=== PATIENT | female | born 1940 | race Caucasian/White ===

== ENCOUNTER 2020-03-23 08:39 | Outpatient (CLI) | payer MEDICARE, SELFPAY ==
--- NOTE | ~2020-03-23 | DEXA_ITS ---
Bone Density Report Name: Nneka Petty Age: 79 Sex: Female Ethnicity: White Date of : 1940 Indication: postmenopausal; height loss; Referring Provider: Corinne Greer Study: Bone densitometry was performed. Exam Date: March 23, 2020 Accession number: [id number] Bone Density: Region BMD T-score Z-score Classification AP Spine (L1-L4) 1.040 -0.1 2.5 Normal Femoral Neck (Left) 0.841 -0.1 2.1 Normal Total Hip (Left) 0.936 0.0 1.9 Normal Total Hip Bilateral Avg 0.925 -0.1 1.8 Normal Femoral Neck (Right) 0.794 -0.5 1.7 Normal Total Hip (Right) 0.913 -0.2 1.7 Normal World Health Organization criteria for BMD impression classify patients as: Normal (T-score at or above -1.0), Osteopenia (T-score between -1.0 and -2.5), or Osteoporosis (T-score at or below -2.5). 10-year Fracture Risk: FRAX not reported because: All T-scores for Spine Total, Hip Total, Femoral Neck at or above -1.0 Previous Exams: Region Exam Age BMD T-score BMD Change BMD Change Date g/cm2 vs Baseline vs Previous AP Spine(L1-L4) 03/23/2020 79 1.040 -0.1 -0.005(-0.5%)# 0.030(3.0%)* 03/16/2017 76 1.010 -0.3 -0.035(-3.4%)# -0.038(-3.6%)* 03/12/2015 74 1.047 0.0 0.003(0.3%)# 0.019(1.8%)# 03/06/2013 72 1.029 -0.2 -0.016(-1.5%)# -0.013(-1.2%)# 03/01/2011 70 1.042 0.0 -0.003(-0.3%) -0.001(-0.1%) 02/19/2009 68 1.043 0.0 -0.002(-0.2%) -0.002(-0.2%) 02/07/2006 65 1.045 0.0 Total Hip(Left) 03/23/2020 79 0.936 0.0 -0.027(-2.8%)# -0.029(-3.0%)* 03/16/2017 76 0.965 0.2 0.003(0.3%)# 0.016(1.7%) 03/12/2015 74 0.950 0.1 -0.013(-1.3%)# -0.047(-4.7%)# 03/06/2013 72 0.997 0.4 0.034(3.6%)# 0.022(2.3%)# 03/01/2011 70 0.975 0.3 0.012(1.3%) -0.001(-0.1%) 02/19/2009 68 0.976 0.3 0.013(1.4%) 0.013(1.4%) 02/07/2006 65 0.963 0.2 Total Hip(Right) 03/23/2020 79 0.913 -0.2 0.049(5.7%)# -0.029(-3.1%)* 03/16/2017 76 0.942 0.0 0.078(9.0%)# 0.061(7.0%)* 03/12/2015 74 0.880 -0.5 0.017(1.9%)# -0.013(-1.5%)# 03/06/2013 72 0.894 -0.4 0.030(3.5%)# 0.020(2.2%)# 03/01/2011 70 0.874 -0.6 0.010(1.2%) -0.004(-0.4%) 02/19/2009 68 0.878 -0.5 0.014(1.6%) 0.014(1.6%) 02/07/2006 65 0.864 -0.6 *Denotes significance at 95% confidence level, LSC for AP Spine = 0.022 g/cm2, LSC for Total Hip = 0.027 g/cm2 Clinical Information Provided by Patient: Has used the following medications: Vi
--- NOTE | ~2020-03-23 | MM_ITS ---
EXAMINATION: MM screening konrad BI w zonia HISTORY: Screening mammogram, family history of breast cancer in her mother. TECHNIQUE: Craniocaudal and mediolateral oblique 3-D tomosynthesis images were obtained and synthetic 2-D images were generated. CAD analysis was submitted and interpreted. COMPARISON: 03/20/2019, 03/18/2018, 03/16/2017 BREAST PARENCHYMAL COMPOSITION: The breasts are heterogeneously dense, which may obscure small masses . FINDINGS: There is no evidence of suspicious mass, calcification, or architectural distortion to sugg est malignancy in either breast. There has been no suspicious interval change. IMPRESSION: 1. No mammographic evidence of malignancy. 2. Recommend routine screening mammography in one year. BI-RADS Category 1: Negative Reviewed, dictated and finalized at location A.
== END 2020-03-23 08:40 | disposition home or self-care (01) ==
LOC: ANHIMG 08:42
PROVIDERS: PCP Family Medicine; Visit Provider Family Medicine
DX: Z12.31 Encounter for screening mammogram for malignant neoplasm of breast (principal); Z78.0 Asymptomatic menopausal state
CPT/HCPCS: 77063; 77067; 77080

== ENCOUNTER 2020-08-13 00:32 | Outpatient (CLI) | payer MEDICARE, SELFPAY ==
[2020-08-13 18:46] LABS: SARS-CoV-2 RNA PCR Positive
== END 2020-08-13 00:33 | disposition home or self-care (01) ==
LOC: ANHCOVIDDT 00:33
PROVIDERS: PCP Family Medicine; Visit Provider Internal Medicine Gastroenterology
DX: Z01.812 Encounter for preprocedural laboratory examination (principal); U07.1 COVID-19
CPT/HCPCS: C9803; U0003; U0005

== ENCOUNTER 2020-10-26 01:28 | Day surgery (SDC) | payer MEDICARE, SELFPAY ==
[2020-08-05 14:57] VITALS: BMI 24.5
--- NOTE | 2020-08-14 10:23 | SUR.PREOP ---
08/14/20 1020 SPOKE WITH PATIENT REGARDING POSITIVE COVID RESULTS. EXPLAINED PROCESS FOR RE-SCHEDULING, PATIENT STATED ABOUT A WEEK AGO SHE HAD WHAT SHE DESCRIBED COLD SYMPTOMS LIKE SINUS CONGESTED AND RUNNY NOSE AND FEELING FINE. STATED SHE HASN'T REALLY GONE ANY WHERE FOR THE LAST 2 WEEKS. ENCOURAGE PATIENT TO FOLLOW UP WITH HER PCP IF SHE DEVELOPS MORE SINGS AND SYMPTOMS ESPECIALLY RESPIRATORY IN NATURE OR GO THE NEAREST EMERGENCY ROOM. I CONTACTED DR. MATHEWS AND NO FURTHER ORDERS WERE RECEIVED HE WAS OK WITH CANCELLING IN THE PATIENT AND WILL RESCHEDULE HER PROCEDURE AT A LATTER DATE.
--- NOTE | 2020-10-12 13:31 | SUR.PREOP ---
Patient denies any changes in health history or medications. UPdated on new arrival time and visitor regulations.
[2020-10-26 07:59] VITALS: BP 149/61; PULSE 69; RESP 12; TEMP 36.3; O2SAT 98; BMI 23.1
[2020-10-26] MEDS: LACTATED RINGERS 1,000 ML 150 ML IV CONT (08:18)
--- NOTE | 2020-10-26 08:32 | WPDANESEPPF ---
Anes - Initial Pre Proc Eval Procedure: Operation Date: 10/26/20 09:00 Proposed Procedures p Screening Colonoscopy - Nba Hunt MD Date/Time: 10/26/20 08:32 Surgeon: Nba Hunt MD Pre Op Diagnosis: neoplasm screening Patient Data Age: 80 Gender: F Height: 5 ft 4 in Weight: 61.2 kg Last Vital Signs Temp 36.3 C L 10/26/20 07:59 Pulse 69 10/26/20 07:59 Resp 12 10/26/20 07:59 BP 149/61 H 10/26/20 07:59 Pulse Ox 98 10/26/20 07:59 Allergies Allergy/AdvReac Type Severity Reaction Status Date / Time PCN Allergy Mild HIVES Uncoded 10/12/20 13:29 Home Medications Medication Instructions Recorded Confirmed Type calcium-vit D3-ferrous fumarate 1 tablet PO DAILY 06/09/19 08/05/20 History 600 mg-125 unit-18 mg tablet atorvastatin 20 mg tablet 20 mg PO DAILY #90 tablet 06/08/20 08/05/20 Rx lisinopril 30 mg tablet 30 mg PO DAILY #90 tablet 06/08/20 08/05/20 Rx hydrochlorothiazide 12.5 mg PO DAILY 08/05/20 08/05/20 History Patient hx anesthesia problems: none Family hx anesthesia problems: none PMFSH Past Medical History Medical History Benign essential hypertension Hx of colonic polyp Other and unspecified hyperlipidemia Surgical History Surgical History Cyst of ovary Family History Family History Father Family history of lung cancer Patient's father is Family history of elevated blood lipids Family history of irritable bowel syndrome Mother Family history of malignant neoplasm of breast in first degree relative Patient's mother is Sibling Family history of elevated blood lipids Family history of lung cancer Other Family history of malignant neoplasm Social History Social History Smoking status: Never smoker Alcohol intake: never Drinks per week: 1 Substance use: never Substance use type: does not use Living arrangements: with family Gender identity (if verbalized by the patient): Female Spiritual care concerns: No Agree to blood products: Yes Anes - Eval Final PreProcedure Day of Procedure 10/26/20 08:32 Patient weight: normal Heart: regular rate and rhythm Lungs: clear to auscultation Airway: Mallampati scale class II Neurological: alert and oriented Last oral intake: >/= 8 hours ASA classification: II Emergent: no Anesthetic plan: proceed Anesthesia type and monitoring: general GIVS and standard monitoring Informed Consent: The patient's anesthetic plan and its attendant risks and benefits were discussed with the patient/family/POA. Questions were solicited and answers provided to the satisfaction of the patient/family/POA.
--- NOTE | 2020-10-26 08:43 | PM.HPGS ---
History of Present Illness History of Present Illness Consent: Risks, benefits, and alternatives have been discussed and questions answered. Patient agrees to proceed with procedure. Chief complaint: neoplasm screening Narrative: Nneka Petty is a 80 year old female here for screening colonoscopy, last one 2010 Review of Systems Constitutional: Constitutional: Denies headache(s) and Denies weakness Eyes: Eyes: Denies blurry vision ENT: Reports Normal hearing present, Denies headache(s) and Denies neck pain Cardiovascular: Cardiovascular: Denies chest pain and Denies dyspnea Respiratory: Respiratory: Denies dyspnea Gastrointestinal: Gastrointestinal: Reports no additional gastrointestinal complaints Genitourinary: Genitourinary: Denies dysuria Musculoskeletal: Musculoskeletal: Denies neck pain Integumentary/Breasts: Skin/Breast: Denies dry skin Neurologic: Reports Normal hearing present, Denies headache(s) and Denies weakness Psychiatric: Psychiatric: Denies anxiety Endocrine: Endocrine: Denies change in body appearance Hematologic/Lymphatic: Hematologic/Lymphatic: Denies easy bleeding Allergic/Immunologic: Allergic/Immunologic: Denies urticaria PMFSH Past Medical History Medical History Benign essential hypertension Hx of colonic polyp Other and unspecified hyperlipidemia Surgical History Surgical History Cyst of ovary Family History Family History Father Family history of lung cancer Patient's father is Family history of elevated blood lipids Family history of irritable bowel syndrome Mother Family history of malignant neoplasm of breast in first degree relative Patient's mother is Sibling Family history of elevated blood lipids Family history of lung cancer Other Family history of malignant neoplasm Social History Social History Smoking status: Never smoker Alcohol intake: never Drinks per week: 1 Substance use: never Substance use type: does not use Living arrangements: with family Gender identity (if verbalized by the patient): Female Spiritual care concerns: No Agree to blood products: Yes Meds Home Medications and Allergies Home Medications Medication Instructions Recorded Confirmed Type calcium-vit D3-ferrous fumarate 1 tablet PO DAILY 06/09/19 08/05/20 History 600 mg-125 unit-18 mg tablet atorvastatin 20 mg tablet 20 mg PO DAILY #90 tablet 06/08/20 08/05/20 Rx lisinopril 30 mg tablet 30 mg PO DAILY #90 tablet 06/08/20 08/05/20 Rx hydrochlorothiazide 12.5 mg PO DAILY 08/05/20 08/05/20 History Allergies Allergy/AdvReac Type Severity Reaction Status Date / Time PCN Allergy Mild HIVES Uncoded 10/12/20 13:29 Vital Signs Vital Signs - 24 hr 10/26/20 07:59 Temperature 97.3 F L Pulse Rate 69 Respiratory Rate 12 Blood Pressure 149/61 H Pulse Oximetry 98 Exam Const: General: comfortable and no acute distress HENMT: General nose exam: Normal nares present Eyes: General: appearance normal, both eyes and all related structures Neck: Neck: no JVD Resp: Auscultation: clear to auscultation bilaterally Cardio: Rate: regular rate Rhythm: regular rhythm GI: Inspection: non-distended GI Palp: Yes Soft to palpation Skin: General skin exam: normal color Neuro: General: gait normal Speech: normal speech Extrem: General: normal to inspection Psych: Mental Status: mental status grossly normal Assessment and Plan Assessment and plan (1) Encounter for screening colonoscopy: Code(s): Z12.11 - Encounter for screening for malignant neoplasm of colon Status: Acute Assessment and Plan: proceed with colonoscopy
[2020-10-26 09:04] VITALS: BP 94/45; PULSE 70; RESP 21; O2SAT 98
[2020-10-26 09:14] VITALS: BP 106/59; PULSE 63; RESP 17; O2SAT 98
[2020-10-26 09:24] VITALS: BP 132/64; PULSE 58; RESP 13; O2SAT 96
== END 2020-10-26 09:29 | disposition home or self-care (01) ==
PROVIDERS: PCP Family Medicine; Visit Provider Internal Medicine Gastroenterology
PROC: 0DJD8ZZ Inspection of Lower Intestinal Tract, Via Natural or Artificial Opening Endoscopic (ICD-10-PCS; CPT 45378; principal; 2020-10-26 09:00)
DX: Z12.11 Encounter for screening for malignant neoplasm of colon (principal); D12.0 Benign neoplasm of cecum; E78.5 Hyperlipidemia, unspecified; K57.30 Diverticulosis of large intestine without perforation or abscess without bleeding; K64.8 Other hemorrhoids; I10 Essential (primary) hypertension
CPT/HCPCS: 45385; 88305; J2704; J7120

== ENCOUNTER 2021-03-24 08:34 | Outpatient (CLI) | payer MEDICARE, SELFPAY ==
--- NOTE | ~2021-03-24 | MM_ITS ---
EXAMINATION: MM screening konrad BI w zonia HISTORY: Screening mammogram, family history of breast cancer in her mother. TECHNIQUE: Craniocaudal and mediolateral oblique 3-D tomosynthesis images were obtained and synthetic 2-D images were generated. CAD analysis was submitted and interpreted. COMPARISON: 03/23/2020, 03/20/2019, 03/18/2018 BREAST PARENCHYMAL COMPOSITION: The breasts are heterogeneously dense, which may obscure small masses . FINDINGS: There is no evidence of suspicious mass, calcification, or architectural distortion to sugg est malignancy in either breast. There has been no suspicious interval change. IMPRESSION: 1. No mammographic evidence of malignancy. 2. Recommend routine screening mammography in one year. BI-RADS Category 1: Negative Reviewed, dictated and finalized at location A.
== END 2021-03-24 08:35 | disposition home or self-care (01) ==
LOC: ANHIMG 08:37
PROVIDERS: PCP Family Medicine; Visit Provider Family Medicine
DX: Z12.31 Encounter for screening mammogram for malignant neoplasm of breast (principal)
CPT/HCPCS: 77063; 77067

== ENCOUNTER 2022-03-27 08:38 | Outpatient (CLI) | payer MEDICARE, SELFPAY ==
--- NOTE | ~2022-03-27 | MM_ITS ---
EXAMINATION: MM screening konrad BI w zonia HISTORY: Screening mammogram, family history of breast cancer in her mother. TECHNIQUE: Craniocaudal and mediolateral oblique 3-D tomosynthesis images were obtained and synthetic 2-D images were generated. CAD analysis was submitted and interpreted. COMPARISON: 03/24/2021, 03/23/2020, 03/20/2019 BREAST PARENCHYMAL COMPOSITION: The breasts are heterogeneously dense, which may obscure small masses . FINDINGS: There is no suspicious mass, calcification, or architectural distortion to suggest malignan cy in either breast. There has been no suspicious interval change. IMPRESSION: 1. No mammographic evidence of malignancy. 2. Recommend routine screening mammography in one year. BI-RADS Category 1: Negative Reviewed, dictated and finalized at location A.
== END 2022-03-27 08:39 | disposition home or self-care (01) ==
LOC: ANHIMG 08:39
PROVIDERS: PCP Family Medicine; Visit Provider Family Medicine
DX: Z12.31 Encounter for screening mammogram for malignant neoplasm of breast (principal)
CPT/HCPCS: 77063; 77067

== ENCOUNTER 2023-06-05 14:35 | Outpatient (CLI) | payer MEDICARE, SELFPAY ==
--- NOTE | ~2023-06-05 | DEXA_ITS ---
Bone Density Report Name: KYLE BLACKWELL Age: 82 Sex: Female Ethnicity: White Date of : 1940 Indication: postmenopausal; screening for osteoporosis; Referring Provider: BOB CONRAD Study: Bone densitometry was performed. Exam Date: June 05, 2023 Accession number: [id number] Bone Density: Region BMD T-score Z-score Classification AP Spine(L1-L4) 1.096 0.4 3.2 Normal Femoral Neck (Left) 0.882 0.3 2.6 Normal Total Hip (Left) 0.933 -0.1 2.0 Normal Femoral Neck (Right) 0.806 -0.4 1.9 Normal Total Hip (Right) 0.873 -0.6 1.5 Normal Total Hip Mean 0.903 -0.4 1.8 Normal World Health Organization criteria for BMD impression classify patients as: Normal (T-score at or above -1.0), Osteopenia (T-score between -1.0 and -2.5), or Osteoporosis (T-score at or below -2.5). 10-year Fracture Risk: FRAX not reported because: All T-scores for Spine Total, Hip Total, Femoral Neck at or above -1.0 Previous Exams: Region Exam Age BMD T-score BMD Change BMD Change Date g/cm2 vs Baseline vs Previous AP Spine (L1-L4) 06/05/2023 82 1.096 0.4 0.049 (4.7%)* 0.057 (5.5%)* 03/23/2020 79 1.040 -0.1 -0.008 (-0.7%) 0.030 (3.0%)* 03/16/2017 76 1.010 -0.3 -0.038 (-3.6%) -0.038 (-3.6%) 03/12/2015 74 1.047 0.0 Total Hip(Left) 06/05/2023 82 0.933 -0.1 -0.017 (-1.8%) -0.003 (-0.4%) 03/23/2020 79 0.936 0.0 -0.014 (-1.4%) -0.029 (-3.0%) 03/16/2017 76 0.965 0.2 0.016 (1.7%) 0.016 (1.7%) 03/12/2015 74 0.950 0.1 Total Hip(Right) 06/05/2023 82 0.873 -0.6 -0.008 (-0.9%) -0.040 (-4.4%) 03/23/2020 79 0.913 -0.2 0.032 (3.7%)* -0.029 (-3.1%) 03/16/2017 76 0.942 0.0 0.061 (7.0%)* 0.061 (7.0%)* 03/12/2015 74 0.880 -0.5 *Denotes significance at 95% confidence level, LSC for AP Spine = 0.022 g/cm2, LSC for Total Hip = 0.027 g/cm2 Clinical Information Provided by Patient: Has used the following medications: Vitamin D, Calcium Patient maximum height was 64 Menopause Age: 54 Drinks caffeinated beverages Onset of menses at age 15 Number of children 2 Impression: The patient has normal bone mass. The BMD for the Total Hip(Right) decreased, changing by -4.4% since the last DXA exam. Discussion: BONE DENSITY IS ABOVE THE MINIMUM DESIRABLE LEVEL AT ALL SKELETAL SITES TESTED. This patient?s bone mineral density is above the minimum desirable level (T-score -1.0 or better) at al
--- NOTE | ~2023-06-05 | MM_ITS ---
EXAMINATION: MM screening konrad BI w zonia HISTORY: Screening TECHNIQUE: Craniocaudal and mediolateral oblique 3-D tomosynthesis images were obtained and synthetic 2-D images were generated. CAD analysis was submitted and interpreted. COMPARISON: Comparison to multiple prior studies sequentially, with oldest reviewed study dated 03/16. BREAST PARENCHYMAL COMPOSITION: Breast composed of scattered areas of fibroglandular density FINDINGS: There is no evidence of suspicious mass, calcification, or architectural distortion to sugg est malignancy in either breast. There has been no suspicious interval change. IMPRESSION: 1. No mammographic evidence of malignancy. 2. Recommend routine screening mammography in one year. BI-RADS Category 1: Negative Reviewed, dictated and finalized at location A. TIC SURGERY COORDINATOR
== END 2023-06-05 14:36 | disposition home or self-care (01) ==
LOC: ANHIMG 14:37
PROVIDERS: PCP Family Medicine; Visit Provider Family Medicine
DX: Z12.31 Encounter for screening mammogram for malignant neoplasm of breast (principal); M81.0 Age-related osteoporosis without current pathological fracture
CPT/HCPCS: 77063; 77067; 77080

== ENCOUNTER 2024-06-06 09:37 | Outpatient (CLI) | payer MEDICARE, SELFPAY ==
--- NOTE | ~2024-06-06 | MM_ITS ---
EXAMINATION: MM screening konrad BI w zonia HISTORY: Screening TECHNIQUE: Craniocaudal and mediolateral oblique 3-D tomosynthesis images were obtained and synthetic 2-D images were generated. CAD analysis was submitted and interpreted. COMPARISON: Comparison to multiple prior studies sequentially, with oldest reviewed study dated 03/18. BREAST PARENCHYMAL COMPOSITION: The breasts are heterogeneously dense, which may obscure small masses . FINDINGS: There is no evidence of suspicious mass, calcification, or architectural distortion to sugg est malignancy in either breast. There has been no suspicious interval change. IMPRESSION: 1. No mammographic evidence of malignancy. 2. Recommend routine screening mammography in one year. BI-RADS Category 1: Negative Reviewed, dictated and finalized at location B. DESIGNER
== END 2024-06-06 09:38 | disposition home or self-care (01) ==
LOC: ANHIMG 09:40
PROVIDERS: PCP Physician Assistant Medical; Visit Provider Physician Assistant Medical
DX: Z12.31 Encounter for screening mammogram for malignant neoplasm of breast (principal)
CPT/HCPCS: 77063; 77067

== ENCOUNTER 2025-06-17 13:37 | Outpatient (CLI) | payer MEDICARE, SELFPAY ==
--- NOTE | ~2025-06-17 | DEXA_ITS ---
Bone Density Report Name: KYLE BLACKWELL Age: 84 Sex: Female Ethnicity: White Date of : 1940 Indication: postmenopausal; screening for osteoporosis; height loss; Referring Provider: MANDA MYERS I. Study: Bone densitometry was performed. Exam Date: June 17, 2025 Accession number: [id number] Bone Density: Region BMD T-score Z-score Classification AP Spine(L1-L4) 1.142 0.9 3.6 Normal Femoral Neck (Left) 0.868 0.2 2.6 Normal Total Hip (Left) 0.960 0.1 2.4 Normal Femoral Neck (Right) 0.803 -0.4 2.0 Normal Total Hip (Right) 0.914 -0.2 2.0 Normal Total Hip Mean 0.937 -0.1 2.2 Normal World Health Organization criteria for BMD impression classify patients as: Normal (T-score at or above -1.0), Osteopenia (T-score between -1.0 and -2.5), or Osteoporosis (T-score at or below -2.5). 10-year Fracture Risk: FRAX not reported because: All T-scores for Spine Total, Hip Total, Femoral Neck at or above -1.0 Previous Exams: Region Exam Age BMD T-score BMD Change BMD Change Date g/cm2 vs Baseline vs Previous AP Spine (L1-L4) 06/17/2025 84 1.142 0.9 0.094 (9.0%)* 0.045 (4.1%)* 06/05/2023 82 1.096 0.4 0.049 (4.7%)* 0.057 (5.5%)* 03/23/2020 79 1.040 -0.1 -0.008 (-0.7%) 0.030 (3.0%)* 03/16/2017 76 1.010 -0.3 -0.038 (-3.6%) -0.038 (-3.6%) 03/12/2015 74 1.047 0.0 Total Hip(Left) 06/17/2025 84 0.960 0.1 0.010 (1.1%) 0.027 (2.9%)* 06/05/2023 82 0.933 -0.1 -0.017 (-1.8%) -0.003 (-0.4%) 03/23/2020 79 0.936 0.0 -0.014 (-1.4%) -0.029 (-3.0%) 03/16/2017 76 0.965 0.2 0.016 (1.7%) 0.016 (1.7%) 03/12/2015 74 0.950 0.1 Total Hip(Right) 06/17/2025 84 0.914 -0.2 0.034 (3.8%)* 0.042 (4.8%)* 06/05/2023 82 0.873 -0.6 -0.008 (-0.9%) -0.040 (-4.4%) 03/23/2020 79 0.913 -0.2 0.032 (3.7%)* -0.029 (-3.1%) 03/16/2017 76 0.942 0.0 0.061 (7.0%)* 0.061 (7.0%)* 03/12/2015 74 0.880 -0.5 *Denotes significance at 95% confidence level, LSC for AP Spine = 0.022 g/cm2, LSC for Total Hip = 0.027 g/cm2 Clinical Information Provided by Patient: Has used the following medications: Vitamin D, Calcium Patient maximum height was 64 Menopause Age: 54 No regular weight bearing exercise Does not regularly consume dairy products Drinks caffeinated beverages Onset of menses at age 15 Number of children 2 Impression: The patient has normal bone mass. No significant bone loss was observed. Discussion: BONE DENSITY IS ABOVE THE MINIMUM DESIRABLE LEVEL AT ALL SKELETAL SITES TESTED. This patient?s bone mineral density is above the minimum desirable level (T-score -1.0 or better) at all sites measured. The patient should follow a healthful lifestyle (good nutrition with adequate calcium and vitamin D, and appropriate weight-bearing exercise). Follow-Up: Consider repeating this study in 5 years or sooner if there is some new clinical indication. Reported by: BRIDGER on 06/17/2025 2:18:00 PM. Reviewed, dictated and finalized at location A.
--- NOTE | ~2025-06-17 | MM_ITS ---
EXAMINATION: MM screening konrad BI w zonia HISTORY: Screening TECHNIQUE: Craniocaudal and mediolateral oblique 3-D tomosynthesis images were obtained and synthetic 2-D images were generated. CAD analysis was submitted and interpreted. COMPARISON: Comparison to multiple prior studies sequentially, with oldest reviewed study dated , 03/20/2019 BREAST PARENCHYMAL COMPOSITION: Dense: The breasts are heterogeneously dense, which may obscure small masses. FINDINGS: There is no evidence of suspicious mass, calcification, or architectural distortion to suggest malignancy in either breast. IMPRESSION: 1. No mammographic evidence of malignancy. 2. Recommend routine screening mammography in one year. BI-RADS Category 1: Negative Reviewed, dictated and finalized at location B. ALARM TECHNICIAN
--- OUTSIDE RECORDS SUMMARY | 2025-06-17 20:22 | XMS_ITS | Clinical Summary ---
Author Organization [facility] Address [address] [place] [address] Care Team Providers Care Diamond Driller Helper Name Role Phone Lori Rodriguez Primary Care Provider [phone] Allergies Active Allergy Reactions Criticality Noted Date Comments Azithromycin Palpitations Low 01/30/2024 Penicillins Hives 12/06/2023 Medications atorvastatin (LIPITOR) 20 MG tablet Take 1 tablet (20 mg total) by mouth daily. 3 Active hydroCHLOROthia zide (HYDRODIURIL) 25 MG tablet Take 0.5 tablets (12.5 mg total) by mouth daily. 3 Active lisinopril (PRINIVIL) 30 MG tablet Take 1 tablet (30 mg total) by mouth daily. 3 Active sertraline (ZOLOFT) 25 MG tablet Take 1 tablet (25 mg total) by mouth daily. 3 Active XARELTO 20 MG Tab tablet TAKE 1 TABLET ORALLY DAILY MUST ADMINISTER WITH EVENING MEAL 4 Active calcium carb-cholecalci ferol (CALCIUM PLUS VITAMIN D3) 600-20 MG-MCG tablet Take 2 tablets by mouth daily. Active vitamin B-12 (CYANOCOBALAMIN ) (CYANOCOBALAMIN ) 1000 mcg tablet Take 1 tablet (1,000 mcg total) by mouth daily. 5 Active metoprolol tartrate (LOPRESSOR) 25 MG tablet TAKE 1/2 TABLETS BY MOUTH 2 TIMES DAILY. 90 tablet 2 5 Active Active Problems Problem Noted Date Diagnosed Date Abdominal fullness in left lower quadrant 2024 Anemia 05/14/2025 Chronic kidney disease 05/14/2025 Depression 05/14/2025 Grief reaction 05/14/2025 Gross hematuria 05/14/2025 Hx of colonic polyp 05/14/2025 Hyperglycemia 05/14/2025 Hyperlipidemia 05/14/2025 Vitamin B12 deficiency 05/14/2025 Weight loss 05/14/2025 Dyslipidemia Benign essential hypertension Dyslipidemia A-fib Resolved Problems Problem Noted Date Diagnosed Date Resolved Date Encounter for screening colonoscopy 05/14/2025 05/18/2025 Encounters Date Type Department Care Team Description 05/18/2025 [facility] [address] [place] [address] Scanned, Doc Pccl 05/13/2025 [facility] [address] [place] [address] Scanned, Doc Pccl 03/18/2025 11:15 AM CDT Office Visit [facility] [id number] [place] [phone] Connor Bejarano MD Atrial Fibrillation; Mitral Valve Disorders 03/18/2025 Travel from Last 3 Months Immunizations Immunization Administration Dates Next Due Arexvy Respiratory Syncytial Virus (RSV, adjuvanted) 0.5 mL, PF 06/14/2023 Pneumococcal (Pneumovax 23) 06/14/2015 Pneumococcal (Prevnar 13) 05/24/2017 Pneumococcal (Prevnar 20) 05/10/2023 Shingrix 11/18/2020,06/11/2020 Family History Medical History Relation Comments enlarged heart Paternal Grandmother Relation Status Comments Father Mother Paternal Grandmother Social History Tobacco Use Types Packs/Day Years Used Date Smoking Tobacco: Never Smokeless Tobacco: Never Tobacco Cessation:Counseling Given: Not Answered Alcohol Use Standard Drinks/Week Comments Not Currently 0 (1 standard drink = 0.6 oz pur e alcohol) Comments Unknown Sex and Gender Information Value Date Recorded Sex Assigned at Female 09/15/2024 8:11 AM BOOK SALESMAN Legal Sex Female 7:00 PM CDT Gender Identity Not on file Sexual Orientation Not on file Last Filed Vital Signs Vital Sign Reading Time Taken Comments Blood Pressure 110/70 03/18/2025 11:07 AM CDT Pulse 74 03/18/2025 11:07 AM CDT Temperature 36.9 C (98.5 F) 12/06/2023 12:48 PM CDT Respiratory Rate 18 12/06/2023 12:48 PM CDT Oxygen Saturation 96% 03/18/2025 11:07 AM CDT Inhaled Oxygen Concentration - - Weight 64.9 kg (143 lb) 03/18/2025 11:07 AM CDT Height 160 cm (5' 3) 03/18/2025 11:07 AM CDT Body Mass Index 25.33 03/18/2025 11:07 AM CDT Plan of Treatment Upcoming Encounters Date Type Department Care Team (Late st Contact Info) Description 09/30/2025 11:15 AM BOOK SALESMAN [facility] [address] [place] [phone] Francesca Paz STAFF COUNSELOR-C [address] [address] Health Maintenance Due Date Last Done Comments Annual Medicare Wellness Visit 2007 Dexa Scan (General) 2007 PHQ-2 (Physician [place]) 07/30/2024 COVID-19 Vaccine ( season) 2025 05/21/2023, 05/31/2022, 05/09/2021, Additional history exists Influenza Adult (#1) 2025 05/10/2023, 05/09/20 22 DTaP, Tdap and Td Vaccines (2 - Td or Tdap) 05/30/2025 05/30/2015 Zoster Vaccines Completed 11/18/2020, 06/11/2020 Pneumococcal Vaccine: 50+ Years Completed 05/10/2023, 05/25/2017, 05/24/2017, Additional history exists RSV Immunization or 60+ Years Completed 06/14/2023 Hepatitis A Vaccines Aged Out No long er eligible based on patient's age to complete this topic Meningococcal B Vaccine Aged Out No l onger eligible based on patient's age to complete this topic Meningococcal Vaccine Aged Out No brayden lita eligible based on patient's age to complete this topic RSV Immunizations Under 20 Months Aged Out No longer eligible based on patient's age to complete this topic Procedures Procedure Name Priority Date/Time Associated Diagnosis Comments ECG GENERIC (SCAN ORDER) Routine 05/13/2025 from Last 3 Months Results * ECG (05/13/2025) us Doc Pccl Scanned SCANNING Edited Result - Final [facility] from Last 3 Months Insurance [employer]RO[employer] MEDICARE [facility] Care Teams Diamond Driller Helper Relationship Specialty Start Date End Date Lori Rodriguez PA [address] [place], [place] [phone] PCP - General PHYSICIAN SKIING TEACHER 09/14/23
--- OUTSIDE RECORDS SUMMARY | 2025-06-17 20:22 | XMS_ITS | Encounter Summary ---
Author Organization [facility] Address [facility] [place] [address] Care Team Providers Care Commissions Coordinator Name Role Phone Lori Rodriguez Primary Care Provider [phone] Encounter Details Date Type Department Care Team (Late Contact Info) Description 09/12/2024 Abstract [facility] [address] [place], [place] [phone] Thai Souza MA Social History Tobacco Use Types Packs/Day Years Used Date Smoking Tobacco: Never Smokeless Tobacco: Never Alcohol Use Standard Drinks/Week Comments Not Currently 0 (1 standard drink = 0.6 oz pur e alcohol) Comments Unknown Sex and Gender Information Value Date Recorded Sex Assigned at Female 09/15/2024 8:11 AM SUPERVISOR ASSEMBLY Legal Sex Female 7:00 PM CDT Gender Identity Not on file Sexual Orientation Not on file documented as of this encounter Plan of Treatment Upcoming Encounters Date Type Department Care Team (Late Contact Info) Description 09/30/2025 11:15 AM SUPERVISOR ASSEMBLY Office Visit [facility] [address] [place] [phone] Francesca Paz NP-C [facility]. [facility] [address] [place], [place] [phone] documented as of this encounter Procedures Procedure Name Priority Date/Time Associated Diagnosis Comments COMPREHENSIVE METABOLIC PANEL Routine 05/02/2024 LIPID PANEL Routine 05/02/2024 CBC, MANUAL DIFF Routine 05/02/2024 documented in this encounter Results * (ABNORMAL) COMPREHENSIVE METABOLIC PANEL (05/02/2024) SODIUM S/P/B 141 GLUCOSE 90 mg/dL AST 14 BUN 28 CREATININE S/P/B 1.04(A) 0.5 - 1.0 CALCIUM S/P/B 9.3 POTASSIUM S/P/B 3.9 CHLORIDE S/P/B 103 ALT 10 GFR ESTIMATE 54 us Default History Genericprovider LABORATORY Final Result * LIPID PANEL (05/02/2024) CHOLESTEROL 144 TRIGLYCERIDES 70 HDL 53 LDL (CALCULATED) 76 NON HDL CHOLESTEROL 91 us Default History Genericprovider LABORATORY Final Result * CBC, MANUAL DIFF (05/02/2024) WBC 7.9 HGB 13.2 HCT 40.8 PLT 231 us Default History Genericprovider LABORATORY Final Result documented in this encounter Visit Diagnoses Not on filedocumented in this encounter Care Teams Commissions Coordinator Relationship Specialty Start Date End Date Lori Rodriguez PA [address] [place] [id number] PCP - General PHYSICIAN REGIONAL SALES MANAGER 09/14/23 documented as of this encounter
--- OUTSIDE RECORDS SUMMARY | 2025-06-17 20:22 | XMS_ITS | Clinical Summary ---
Author Organization [facility] Care Team Providers Care Underground Heavy Equipment Operator Name Role Phone Unavailable Primary Care Provider Unavailabl e Social History Tobacco Use Types Packs/Day Years Used Date Smoking Tobacco: Never Assessed Comments Unknown Sex and Gender Information Value Date Recorded Sex Assigned at Not on file Legal Sex Female 10:01 PM CDT Gender Identity Not on file Sexual Orientation Not on file Plan of Treatment Not on file
== END 2025-06-17 13:38 | disposition home or self-care (01) ==
LOC: ANHFOHIMG 13:38
PROVIDERS: PCP Physician Assistant Medical; Visit Provider Physician Assistant Medical
DX: Z12.31 Encounter for screening mammogram for malignant neoplasm of breast (principal); E28.39 Other primary ovarian failure; Z78.0 Asymptomatic menopausal state
CPT/HCPCS: 77063; 77067; 77080